=== PATIENT | female | born 1950 | race Two or more races ===

== ENCOUNTER 2018-04-18 23:51 | Emergency (ER) | payer MEDICARE, MEDICAID ==
[~2018-04-18] VITALS: Ht 162.6 cm; Wt 40.8 kg
[2018-04-19] VITALS: BP 98/62
[2018-04-19] MEDS ORDERED: Sodium Chloride 500ML 500 ML IV ONE (00:22)
--- NOTE | 2018-04-19 00:26 | Emergency Room Report ---
History of Present Illness General Chief Complaint: Abdominal Pain Source: Patient, Medical Record Present Illness HPI Is a 68-year-old female with multiple medical problems including atrial fibrillation, CHF, chronic colitis, CVA, fibromyalgia and chronic pain. She presents with chief complaint of headache and also abdominal pain. This has been going on for months. She was at the custodial and x-rays show an ileus. Pain is 7 out of 10. Nothing made it better. Nothing made it worse. Denies any nausea vomiting. Last bowel movement was yesterday. No diarrhea. Nothing made it better other than pain medication. Allergies: Coded Allergies: HALOPERIDOL (Verified Allergy, Unknown, 04/18/18) PROMETHAZINE (Verified Allergy, Unknown, 04/18/18) SULFA (SULFONAMIDE ANTIBIOTICS) (Verified Allergy, Unknown, 04/18/18) Uncoded Allergies: VITAMIN B COMPLEX (Allergy, Unknown, 04/18/18) Patient History Past Medical History: see triage record, old chart reviewed, psych hx Past Surgical History: other Pertinent Family History: none Social History: Denies: smoking Now: No Immunizations: other Reviewed Nursing Documentation: PMH: Agreed; PSxH: Agreed Nursing Documentation-PMH Hx Cardiac Problems: Yes - A FIB,CHF Hx Hypertension: Yes - FIBROMYALGIA Hx COPD: Yes - MRSA Hx Gastrointestinal Problems: Yes - CROHNS,IBS,CHRONIC COLITIS History Of Psychiatric Problem: Yes - DEPRESSION Hx Cerebrovascular Accident: Yes Review of Systems Eye: Denies: eye pain, blurred vision ENT: Denies: ear pain, nose congestion, throat swelling Respiratory: Denies: cough, shortness of breath Cardiovascular: Denies: chest pain, palpitations Gastrointestinal: Reports: abdominal pain; Denies: diarrhea, nausea, vomiting Musculoskeletal: Denies: back pain, joint pain Skin: Denies: rash Neurological: Reports: headache; Denies: numbness Endocrine: Denies: increased thirst, increased urine Hematologic/Lymphatic: Denies: easy bruising All Other Systems: negative except mentioned in HPI Physical Exam Vital Signs Date Time Temp Pulse Resp B/P (MAP) Pulse Ox O2 Delivery O2 Flow Rate FiO2 04/18/18 23:56 98.0 67 16 95/60 98 Room Air 98.1 vitals normal Sp02 EP Interpretation: reviewed, normal General Appearance: alert, thin, Chronically Ill Head: normocephalic, atraumatic Eyes: bilateral eye PERRL, bilateral eye EOMI ENT: hearing grossly normal, normal pharynx Neck: full range of motion, supple, no meningismus Respiratory: chest non-tender, lungs clear, normal breath sounds Cardiovascular #1: regular rate, rhythm, no murmur Gastrointestinal: no mass, no organomegaly, no bruit, non-distended, tenderness - Mild, diffuse, decreased bowel sounds Musculoskeletal: back normal, gait/station normal, normal range of motion Psychiatric: mood/affect normal Skin: warm/dry Medical Decision Making Diagnostic Impression: Primary Impression: Abdominal pain Qualified Codes: R10.84 - Generalized abdominal pain Additional Impressions: Headache Qualified Codes: G44.209 - Tension-type headache, unspecified, not intractable UTI (urinary tract infection) Qualified Codes: N30.00 - Acute cystitis without hematuria ER Course Patient with generalize pain. No evidence of any acute abdomen. No obstruction. She does have a UTI. Antibiotics given here. We'll discharge home. Lab Results Impression labs unremarkable CT/MRI/US Diagnostic Results CT/MRI/US Diagnostic Results : Imaging Test Ordered: CT abdomen and pelvis Impression no acute process per radiologist Last Vital Signs Date Time Temp Pulse Resp B/P (MAP) Pulse Ox O2 Delivery O2 Flow Rate FiO2 04/18/18 23:56 98.0 67 16 95/60 98 Room Air 98.1 Status: improved Disposition: ER SNF Condition: Stable Scripts Cephalexin* (KEFLEX*) 500 Mg Capsule 500 MG ORAL TID, #21 CAP Prov: ERIBERTO PRETTY M.D. 04/19/18 Additional Instructions: Follow-up with your doctor in 7 days. Return if symptom worsen. ERIBERTO PRETTY M.D. Apr 19, 2018 00:26
[2018-04-19] MEDS ORDERED: Morphine Sulfate 2mg/ml Inj IVP ONE ×2 (00:30→03:00)
[2018-04-19 00:35] LABS: BASOPHILS % (AUTO) 1.2 % (0.0-2.0); EOSINOPHILS % (AUTO) 1.1 % (0.0-3.0); HEMATOCRIT 39.5 % (37.0-47.0); HEMOGLOBIN 12.5 G/DL (12.0-16.0); LYMPHOCYTES % (AUTO) 30.9 % (20.0-45.0); MEAN CORPUSCULAR VOLUME 88 FL (80-99); MONOCYTES % (AUTO) 5.8 % (1.0-10.0); NEUTROPHILS % (AUTO) 60.9 % (45.0-75.0); PLATELET COUNT 424 K/UL (150-450); RED CELL DISTRIBUTION WIDTH 17.1 % (11.6-14.8); WHITE BLOOD COUNT 6.5 K/UL (4.8-10.8)
[2018-04-19 00:44] LABS: ANION GAP 8 mmol/L (5-15); BLOOD UREA NITROGEN 20 mg/dL (7-18); CALCIUM 8.7 MG/DL (8.5-10.1); CARBON DIOXIDE 23 MMOL/L (21-32); CHLORIDE 108 MMOL/L (98-107); CREATININE 0.8 MG/DL (0.55-1.30); SODIUM 139 MMOL/L (136-145)
[2018-04-19 00:49] LABS: ALANINE AMINOTRANSFERASE 25 U/L (12-78); ALBUMIN 3.3 G/DL (3.4-5.0); ALKALINE PHOSPHATASE 95 U/L (46-116); ASPARTATE AMINO TRANSFERASE 12 U/L (15-37); BILIRUBIN,TOTAL 0.2 MG/DL (0.2-1.0)
[2018-04-19 01:13] LABS: BILIRUBIN, URINE NEGATIVE (NEGATIVE); COLOR,URINE PALE YELLOW; GLUCOSE, URINE (UA) NEGATIVE (NEGATIVE); KETONES,URINE NEGATIVE (NEGATIVE); LEUKOCYTE ESTERASE ,URINE 2+ (NEGATIVE); NITRITE,URINE POSITIVE (NEGATIVE); PH,URINE 6 (4.5-8.0); PROTEIN,URINE 1+ (NEGATIVE); UROBILINOGEN,URINE NORMAL MG/DL (0.0-1.0)
[2018-04-19 01:19] LABS: APPEARANCE,URINE CLOUDY
[2018-04-19] MEDS ORDERED: cefTRIAXone 1 GM in NS 55 ML IVPB ONE (01:30)
--- NOTE | 2018-04-19 01:35 | Diagnostic Imaging Report ---
EXAM: CT Abdomen and Pelvis Without Intravenous Contrast CLINICAL HISTORY: ABD PAIN TECHNIQUE: Axial computed tomography images of the abdomen and pelvis without intravenous contrast. CTDI is 9 mGy and DLP is 448 mGy-cm. One or more of the following dose reduction techniques were used: automated exposure control, adjustment of the mA and/or kV according to patient size, use of iterative reconstruction technique. COMPARISON: No relevant prior studies available. FINDINGS: Lung bases: Unremarkable. No mass. No consolidation. ABDOMEN: Liver: Unremarkable. Gallbladder and bile ducts: The gallbladder is partially contracted. No calcified stones. No ductal dilation. Pancreas: Unremarkable. No ductal dilation. Spleen: Unremarkable. No splenomegaly. Adrenals: Unremarkable. No mass. Kidneys and ureters: There is mild left hydronephrosis. Stomach and bowel: Unremarkable. No obstruction. No mucosal thickening. PELVIS: Appendix: The appendix is visualized and normal in appearance. Bladder: Unremarkable. No stones. Reproductive: The uterus is not visualized. ABDOMEN and PELVIS: Intraperitoneal space: Unremarkable. No free air. No significant fluid collection. Bones/joints: There is scatter artifact from a left femoral hardware. There are degenerative changes in the spine. There is chronic burst fracture with 90% height loss at L2. 4 mm retropulsion into the spinal canal. Chronic compression fractures are seen at T10 and T11 as well with moderate height loss. No dislocation. Soft tissues: Unremarkable. Vasculature: Unremarkable. No abdominal aortic aneurysm. Lymph nodes: Unremarkable. No enlarged lymph nodes. Tubes, lines and devices: There is partial imaging of a cardiac pacemaker electrode. IMPRESSION: 1. No acute abdominal or pelvic pathology. 2. Mild left hydronephrosis.
[2018-04-19] MEDS ORDERED: CEPHALEXIN500 MG ORAL (01:42)
[2018-04-19 02:14] VITALS: BP 99/64
[2018-04-19] MEDS ORDERED: Morphine Sulfate 2mg/ml Inj ONE (02:50)
[2018-04-19 03:15] VITALS: BP 94/56
[2018-04-19 03:20] VITALS: BP 96/54
== END 2018-04-19 03:20 ==
LOC: EDBD 23:51 → EMR 23:59
DX: N39.0 Urinary tract infection, site not specified (principal); R51 Headache; I11.0 Hypertensive heart disease with heart failure; I50.9 Heart failure, unspecified; I48.92 Unspecified atrial flutter; J44.9 Chronic obstructive pulmonary disease, unspecified; Z86.73 Personal history of transient ischemic attack (TIA), and cerebral infarction without residual deficits; M79.7 Fibromyalgia; F32.9 Major depressive disorder, single episode, unspecified; Z88.2 Allergy status to sulfonamides; Z88.8 Allergy status to other drugs, medicaments and biological substances
CPT/HCPCS: 36415; 74176; 80053; 81003; 83690; 85025; 87086; 87181; 96365; 96375; 96376; 99284; J0696; J2270; J2405; J7040